=== PATIENT | female | born 1990 | race Two or more races ===

== ENCOUNTER 2022-10-02 13:27 | Emergency (ER) | payer OTHER ==
[~2022-10-02] VITALS: Ht 160 cm; Wt 63.5 kg
[2022-10-02] MEDS ORDERED: TAMOXIFEN CITRA10 MG (14:00)
[2022-10-02] MEDS ORDERED: DICLOFENAC SODI75 MG PO (19:52)
== END 2022-10-02 20:08 | disposition home or self-care (01) ==
LOC: ER 13:27
DX: R10.31 Right lower quadrant pain (principal)